=== PATIENT | female | born 1995 | race Caucasian/White ===

== ENCOUNTER 2017-02-07 13:08 | Emergency (ER) | payer OTHER ==
[2017-02-07 13:27] LABS: BASOPHIL COUNT 0.1 K/uL (0-0.1); EOSINOPHIL (%) 0.1 % (0-5); HEMATOCRIT 45.2 % (36.0-46.0); IMMATURE GRANULOCYTE (%) 0.7 % (0.0-0.7); IMMATURE GRANULOCYTE COUNT 0.1 K/uL; INSTRUMENT ABS NEUTROPHIL CT 14.7 K/uL; LYMPHOCYTE COUNT 1.5 K/uL (1.0-2.8); MCHC 33.4 G/DL (30.0-36.0); MCV 83.9 FL (83-99); MEAN PLAT.VOLUME 10.7 uM^3 (9.5-12.4); MONOCYTE (%) 6.5 % (3-12); MONOCYTE COUNT 1.1 K/uL (0-0.8); NEUTROPHIL (%) 83.9 % (45-76); NEUTROPHIL COUNT 14.7 K/uL (1.8-6.4); PLATELET COUNT 313 K/uL (156-360); RBC DIS.WIDTH-SD 36.3 % (39-53); RED BLOOD COUNT 5.39 M/uL (3.80-5.20); WHITE BLOOD COUNT 17.5 K/uL (4.1-10.2)
[2017-02-07 13:44] LABS: AMYLASE 46 IU/L (1-118); CHLORIDE 105 mEq/L (99-109); POTASSIUM 3.5 mEq/L (3.7-5.4); SODIUM 141 mEq/L (136-147)
[2017-02-07 13:46] LABS: GLUCOSE 98 mg/dL (70-99)
[2017-02-07 13:47] LABS: ANION GAP 12 MEQ/L (2-14)
[2017-02-07 13:49] LABS: SERUM ETHYL ALCOHOL < 10 mg/dL
[2017-02-07 13:50] LABS: GFR ESTIMATE (CALCULATED) > 59 mL/min/
[2017-02-07 13:51] LABS: UREA NITROGEN (BUN) 12 mg/dL (9-23)
[2017-02-07 13:53] LABS: LIPASE 18 U/L (1.0-51.0)
[2017-02-07 13:58] LABS: QUANTITATIVE HCG < 4.0 MIU/ML
[2017-02-07] MEDS ORDERED: LIDODERM 5% P1 PATCH TD (15:37)
[2017-02-07] MEDS ORDERED: IBUPROFEN600 MG PO (15:37)
== END 2017-02-07 16:26 | disposition home or self-care (01) ==
LOC: TRA 13:08
PROVIDERS: Emergency Medicine
DX: S70.02XA Contusion of left hip, initial encounter (principal); V80.010A Animal-rider injured by fall from or being thrown from horse in noncollision accident, initial encounter; Y93.52 Activity, horseback riding
CPT/HCPCS: 73502; 80048; 81003; 82150; 83690; 84702; 85025; 86850; 86900; 86901; 99281; 99285; G0480

== ENCOUNTER 2017-12-13 23:01 | Emergency (ER) | payer OTHER ==
[~2017-12-13] VITALS: Ht 165.1 cm; Wt 103.5 kg
[~2017-12-13 23:01] MED LIST: IBUPROFEN600 MG PO; LIDODERM 5% P1 PATCH TD
[2017-12-13 23:35] LABS: HEMOGLOBIN 13.6 G/DL (11.9-15.5); MCH 27.1 PG (29.0-34.0); MCHC 33.2 G/DL (30.0-36.0); MCV 81.7 FL (83-99); PLATELET COUNT 290 K/uL (156-360); RBC DIS.WIDTH-CV 12.8 % (11.8-14.6); RBC DIS.WIDTH-SD 37.7 % (39-53); RED BLOOD COUNT 5.02 M/uL (3.80-5.20); WHITE BLOOD COUNT 10.2 K/uL (4.1-10.2)
[2017-12-13 23:45] LABS: ALBUMIN 4.6 g/dL (3.2-4.8); CHLORIDE 108 mEq/L (99-109); POTASSIUM 3.4 mEq/L (3.7-5.4); SODIUM 141 mEq/L (136-147)
[2017-12-13 23:48] LABS: GLUCOSE 87 mg/dL (70-99); TOTAL PROTEIN 7.8 g/dL (6.4-8.3)
[2017-12-13 23:50] LABS: TOTAL BILIRUBIN 0.2 mg/dL (0.0-1.0)
[2017-12-13 23:51] LABS: ALKALINE PHOSPHATASE 104 IU/L (3-129); GFR ESTIMATE (CALCULATED) > 59 mL/min/
[2017-12-13 23:52] LABS: UREA NITROGEN (BUN) 9 mg/dL (9-23)
[2017-12-13 23:53] LABS: AST (GOT) 15 IU/L (2-34)
[2017-12-13 23:54] LABS: ALT (GPT) 17 IU/L (3-49)
[2017-12-13 23:58] LABS: TROP-I INTERPRETATION NEGATIVE; TROPONIN-I < 0.01 ng/mL (0.0-0.30)
[2017-12-14 00:02] LABS: QUANTITATIVE HCG < 4.0 MIU/ML
[2017-12-14 01:03] LABS: APPEARANCE CLEAR ((CLEAR)); BILIRUBIN NEGATIVE; BLOOD NEGATIVE; COLOR YELLOW ((YELLOW)); GLUCOSE (STRIP) NEGATIVE; KETONES NEGATIVE; LEUKOCYTES NEGATIVE; NITRITE NEGATIVE; PROTEIN (STRIP) NEGATIVE; SPECIFIC GRAVITY 1.018 (1.000-1.030); UCUL ADDED? NO; UROBILINOGEN 0.2 MG/DL (0.2-1.0)
[2017-12-14 01:45] LABS: AMPHETAMINE NEGATIVE (500 ng/mL); BARBITURATES NEGATIVE (200 ng/mL); BENZODIAZEPINES NEGATIVE (150 ng/mL); BUPRENORPHINE NEGATIVE (10 ng/mL); COCAINE NEGATIVE (150 ng/mL); METHADONE NEGATIVE (200 ng/mL); METHAMPHETAMINE NEGATIVE (500 ng/mL); OPIATES (MORPHINE) NEGATIVE (100 ng/mL); OXYCODONE NEGATIVE (100 ng/mL); PHENCYCLIDINE NEGATIVE (25 ng/mL); PROPOXYPHENE NEGATIVE (300 ng/mL); THC CANNABINOIDS NEGATIVE (50 ng/mL); TRICYCLIC ANTIDEPRESSANTS NEGATIVE (300 ng/mL)
[2017-12-14 02:04] LABS: TROP-I INTERPRETATION NEGATIVE; TROPONIN-I < 0.01 ng/mL (0.0-0.30)
[2017-12-14 02:21] LABS: LIPASE 30 U/L (1.0-51.0)
[2017-12-14] MEDS ORDERED: NAPROSYN500 MG PO (02:38)
[2017-12-14] MEDS ORDERED: ZOFRAN4 MG PO (02:39)
[2017-12-14 03:45] VITALS: BP 129/77
== END 2017-12-14 03:48 | disposition home or self-care (01) ==
LOC: EME 23:01
PROVIDERS: Emergency Medicine
DX: R07.89 Other chest pain (principal); R00.0 Tachycardia, unspecified
CPT/HCPCS: 71045; 80053; 81003; 83690; 84484; 84702; 85027; 85379; 93005; 99281; 99285; J1885; J2060; J7030; S0028